=== PATIENT | female | born 1980 | race Two or more races ===

== ENCOUNTER 2019-04-28 21:30 | Emergency (ER) | payer SELFPAY ==
[~2019-04-28] VITALS: Ht 165.1 cm; Wt 73.0 kg
[2019-04-29] MEDS ORDERED: SODIUM CHLORIDE 0.9% 1,000 ML IV ONE (00:17)
[2019-04-29] MEDS ORDERED: ONDANSETRON HCL 4MG/2ML INJ IV STA (00:17)
[2019-04-29] MEDS ORDERED: MORPHINE SULFATE 4 MG/ML CPJ (NOT FOR IM USE) IV STA (00:17)
[2019-04-29 00:30] LABS: EOSINOPHILS % 5.9 % (0.0-5.0); LYMPHOCYTES % 39.6 % (20.0-50.0); MEAN CORPUSCULAR HEMOGLOBIN 25.6 pg (28.0-32.0); MEAN CORPUSCULAR VOLUME 79.1 fL (81.0-99.0); MEAN PLATELET VOLUME 7.8 fl (7.4-10.4); NEUTROPHILS % 46.5 % (40.0-76.0); PLATELET 357 x1000/uL (130-400); RED BLOOD CELL COUNT 3.91 mill/uL (4.2-5.4); RED CELL DISTRIBUTION WIDTH 15.7 % (11.6-14.6)
[2019-04-29 00:32] LABS: CHLORIDE 110 mEq/L (98-107)
[2019-04-29 01:02] LABS: CLARITY URINE CLEAR (CLEAR); COLOR URINE YELLOW (YELLOW); KETONES URINE NEGATIVE (NEGATIVE); LEUKOCYTE ESTERASE URINE NEGATIVE (NEGATIVE); NITRITE URINE NEGATIVE (NEGATIVE); OCCULT BLOOD URINE NEGATIVE (NEGATIVE); PROTEIN URINE NEGATIVE (NEGATIVE); SPECIFIC GRAVITY URINE 1.004 (1.005-1.030); UROBILINOGEN URINE 0.2 E.U./dL (0.2-1.0)
[2019-04-29 04:33] VITALS: BP 95/60
== END 2019-04-29 04:55 | disposition home or self-care (01) ==
LOC: ER 21:30
DX: R10.9 Unspecified abdominal pain (principal); K76.0 Fatty (change of) liver, not elsewhere classified
CPT/HCPCS: 36415; 76705; 80053; 81003; 83605; 83690; 85025; 96374; 96375; 99284; J2270; J2405; J7030